=== PATIENT | male | born 1935 | race Caucasian/White ===

== ENCOUNTER → 2017-10-03 | Outpatient (CLI) | payer OTHER ==
[~2017-10-03] MED LIST: ALLO300 PO; ASCO500 PO; ASPI325; ATOR10; AZIT250 PO; CLOP75; CYAN1000; Coq-10100 MG PO; D3-20002000 UNIT PO; DOXA1; DOXA2; ELIQUIS5 MG PO; FINA5 PO; FISH1000 PO; HYDACE5 PO; IRON PO; LEVSOD137 PO; LEVSOD50 PO; LEVSOD88 PO; LISI5 PO; METO100ER; METO100ER PO; METO25ER PO; METO50ER PO; NIAC500; NITR.4SL; OMEGA PO; ONE DAILY MULT1 EACH PO; Omeprazole20 M1 PO; PRAV10 PO; Pravachol40 MG PO; TRIHYD253A; UBID100 PO; VERA240ERB; VYTORIN; WARF10 PO; WARF7.5 PO; XARELTO10 MG PO
[2017-10-04 14:07] LABS: Stool Occult Bld Immuno 1 Negative (NEGATIVE)
== END | disposition home or self-care (01) ==
LOC: LAB SHORT 09:00 → LAB 09:00 → LAB FUT 09-29 08:55
PROVIDERS: Internal Medicine
DX: D63.8 Anemia in other chronic diseases classified elsewhere (principal)
CPT/HCPCS: 82274

== ENCOUNTER → 2018-05-11 | Outpatient (CLI) | payer OTHER ==
[2018-05-11 15:03] LABS: Protein, Urine Random <5.0 mg/dL (0.0-11.9)
== END | disposition home or self-care (01) ==
LOC: LAB 14:33 → LAB SHORT 14:33
PROVIDERS: Internal Medicine
DX: N18.3 Chronic kidney disease, stage 3 (moderate) (principal)
CPT/HCPCS: 82570; 84156

== ENCOUNTER → 2018-08-06 | Outpatient (CLI) | payer OTHER ==
[~2018-08-06] MED LIST changes: +WARF2.5 PO
[2018-08-06 15:18] LABS: BASOPHILS ABSOLUTE AUTO 0.09 K/mm3 (0.00-0.23); BASOPHILS PERCENT AUTO 1 % (0-2); EOSINOPHILS ABSOLUTE AUTO 0.22 K/mm3 (0.00-0.68); EOSINOPHILS PERCENT AUTO 3 % (0-6); Hematocrit 32.7 % (37.0-53.0); Hemoglobin 10.4 g/dL (13.5-17.5); IMMATURE GRAN ABSOLUTE AUTO 0.05 K/mm3 (0.00-0.10); IMMATURE GRAN PERCENT AUTO 1 % (0-1); LYMPHOCYTES ABSOLUTE AUTO 0.32 K/mm3 (0.84-5.20); LYMPHOCYTES PERCENT AUTO 4 % (21-46); MONOCYTES ABSOLUTE AUTO 0.41 K/mm3 (0.16-1.47); MONOCYTES PERCENT AUTO 5 % (4-13); Mean Corpuscular HGB 28.2 pg (26.0-34.0); Mean Corpuscular HGB Conc 31.8 g/dL (31.5-36.5); Mean Corpuscular Volume 89 fL (80-100); Mean Platelet Volume 10.8 fL (9.1-12.4); NEUTROPHILS ABSOLUTE AUTO 7.32 K/mm3 (1.96-9.15); NEUTROPHILS PERCENT AUTO 87 % (41-73); Platelet Count 517 K/mm3 (150-400); RDW Standard Deviation 67.8 fL (35.1-46.3); Red Blood Cell Count 3.69 M/mm3 (4.30-5.90); White Blood Cell Count 8.41 K/mm3 (4.00-11.30)
[2018-08-06 15:50] LABS: International Normalized Ratio 2.56; Prothrombin Time Results 24.9 Sec (9.7-11.5)
== END | disposition home or self-care (01) ==
LOC: LAB SHORT 15:08 → LAB EV 15:08
PROVIDERS: General Practice
DX: Z79.01 Long term (current) use of anticoagulants (principal); Z51.81 Encounter for therapeutic drug level monitoring; Z79.899 Other long term (current) drug therapy
CPT/HCPCS: 85025; 85610

== ENCOUNTER 2018-08-07 15:23 | Emergency (ER) | payer OTHER ==
[~2018-08-07] VITALS: Ht 175.3 cm; Wt 73.0 kg
[~2018-08-07 15:23] MED LIST changes: -WARF2.5 PO
[2018-08-07] MEDS ORDERED: WARF2.5 PO (15:55)
[2018-08-07 16:24] LABS: BASOPHILS ABSOLUTE AUTO 0.13 K/mm3 (0.00-0.23); BASOPHILS PERCENT AUTO 2 % (0-2); EOSINOPHILS ABSOLUTE AUTO 0.24 K/mm3 (0.00-0.68); EOSINOPHILS PERCENT AUTO 3 % (0-6); Hematocrit 32.9 % (37.0-53.0); Hemoglobin 10.3 g/dL (13.5-17.5); IMMATURE GRAN ABSOLUTE AUTO 0.05 K/mm3 (0.00-0.10); IMMATURE GRAN PERCENT AUTO 1 % (0-1); LYMPHOCYTES ABSOLUTE AUTO 0.28 K/mm3 (0.84-5.20); LYMPHOCYTES PERCENT AUTO 3 % (21-46); MONOCYTES ABSOLUTE AUTO 0.39 K/mm3 (0.16-1.47); MONOCYTES PERCENT AUTO 4 % (4-13); Mean Corpuscular HGB 27.6 pg (26.0-34.0); Mean Corpuscular HGB Conc 31.3 g/dL (31.5-36.5); Mean Corpuscular Volume 88 fL (80-100); NEUTROPHILS ABSOLUTE AUTO 7.75 K/mm3 (1.96-9.15); NEUTROPHILS PERCENT AUTO 88 % (41-73); Platelet Count 575 K/mm3 (150-400); RDW Coefficient Variation 20.5 % (11.7-14.2); RDW Standard Deviation 65.5 fL (35.1-46.3); Red Blood Cell Count 3.73 M/mm3 (4.30-5.90); White Blood Cell Count 8.84 K/mm3 (4.00-11.30)
[2018-08-07 16:36] LABS: Alanine Aminotransfer (ALT/SGP 29 U/L (12-78); Albumin, Blood 3.9 g/dL (3.4-5.0); Albumin/Globulin Ratio 1.1 (0.8-1.8); Alk Phos 141 U/L (50-136); Anion Gap 6 mmol/L (6-16); Aspartate Aminotrans (AST/SGOT 25 U/L (12-37); Blood Urea Nitrogen 24 mg/dL (8-24); Bun/Creatinine Ratio 21.1 (12.0-20.0); CO2, Blood 31 mmol/L (21-32); Calcium, Blood 8.8 mg/dL (8.5-10.1); Chloride, Blood 99 mmol/L (98-108); Creatinine, Blood 1.14 mg/dL (0.60-1.20); Globulin, Blood 3.7 g/dL (2.2-4.0); Glomerular Filtration Rate >60 (60-); Glucose, Blood 102 mg/dL (70-99); Potassium, Blood 3.6 mmol/L (3.5-5.5); Sodium, Blood 136 mmol/L (136-145); Total Protein, Blood 7.6 g/dL (6.4-8.2)
[2018-08-07 16:43] LABS: International Normalized Ratio 2.83; Prothrombin Time Results 27.3 Sec (9.7-11.5)
== END 2018-08-07 18:44 | disposition home or self-care (01) ==
LOC: ER 15:23
PROVIDERS: Emergency Medicine
DX: R04.0 Epistaxis (principal); Z88.5 Allergy status to narcotic agent; Z88.8 Allergy status to other drugs, medicaments and biological substances; Z79.899 Other long term (current) drug therapy; Z79.01 Long term (current) use of anticoagulants; I25.2 Old myocardial infarction; Z87.891 Personal history of nicotine dependence
CPT/HCPCS: 30903; 36415; 80053; 85025; 85610; 99283-25

== ENCOUNTER → 2018-10-04 | Outpatient (CLI) | payer OTHER ==
[~2018-10-04] MED LIST changes: +WARF2.5 PO
[2018-10-04 16:01] LABS: BASOPHILS ABSOLUTE AUTO 0.09 K/mm3 (0.00-0.23); BASOPHILS PERCENT AUTO 1 % (0-2); EOSINOPHILS ABSOLUTE AUTO 0.07 K/mm3 (0.00-0.68); EOSINOPHILS PERCENT AUTO 1 % (0-6); Hematocrit 37.1 % (37.0-53.0); IMMATURE GRAN ABSOLUTE AUTO 0.03 K/mm3 (0.00-0.10); IMMATURE GRAN PERCENT AUTO 0 % (0-1); LYMPHOCYTES ABSOLUTE AUTO 0.22 K/mm3 (0.84-5.20); LYMPHOCYTES PERCENT AUTO 3 % (21-46); MONOCYTES ABSOLUTE AUTO 0.43 K/mm3 (0.16-1.47); MONOCYTES PERCENT AUTO 5 % (4-13); Mean Corpuscular HGB 27.6 pg (26.0-34.0); Mean Corpuscular HGB Conc 32.3 g/dL (31.5-36.5); Mean Corpuscular Volume 86 fL (80-100); Mean Platelet Volume 10.4 fL (9.1-12.4); NEUTROPHILS ABSOLUTE AUTO 7.42 K/mm3 (1.96-9.15); NEUTROPHILS PERCENT AUTO 90 % (41-73); Platelet Count 514 K/mm3 (150-400); RDW Coefficient Variation 17.7 % (11.7-14.2); RDW Standard Deviation 54.7 fL (35.1-46.3); Red Blood Cell Count 4.34 M/mm3 (4.30-5.90); White Blood Cell Count 8.26 K/mm3 (4.00-11.30)
[2018-10-04 16:22] LABS: Albumin, Blood 4.1 g/dL (3.4-5.0); Albumin/Globulin Ratio 1.2 (0.8-1.8); Bilirubin, Total 1.1 mg/dL (0.1-1.0); Calcium, Blood 9.1 mg/dL (8.5-10.1); Creatinine, Blood 1.5 mg/dL (0.60-1.20); Globulin, Blood 3.3 g/dL (2.2-4.0); Potassium, Blood 3.6 mmol/L (3.5-5.5); Total Protein, Blood 7.4 g/dL (6.4-8.2)
== END | disposition home or self-care (01) ==
LOC: LAB EV 15:54 → LAB SHORT 15:54
PROVIDERS: Physician Assistant
DX: J90 Pleural effusion, not elsewhere classified (principal); R06.02 Shortness of breath
CPT/HCPCS: 80053; 83880; 85025

== ENCOUNTER 2018-10-11 13:31 | Day surgery (SDC) | payer OTHER | END 2018-10-11 23:01 | disposition home or self-care (01) | LOC: US 13:31 | DX: J90 Pleural effusion, not elsewhere classified (principal) | CPT/HCPCS: 32555; 71045 ==

== ENCOUNTER 2018-10-21 14:35 | Day surgery (SDC) | payer OTHER | END 2018-10-21 22:43 | disposition home or self-care (01) | LOC: US 14:35 | DX: J90 Pleural effusion, not elsewhere classified (principal) | CPT/HCPCS: 32555; 71045 ==

== ENCOUNTER 2018-11-14 13:39 | Day surgery (SDC) | payer OTHER, SELFPAY ==
[2018-11-15 12:23] LABS: Albumin, Body Fluid 2.4 g/dL; Protein, Body Fluid 3.6 g/dL
== END 2018-11-14 22:39 | disposition home or self-care (01) ==
LOC: US 13:39
PROVIDERS: Internal Medicine Gastroenterology
DX: K74.69 Other cirrhosis of liver (principal); J90 Pleural effusion, not elsewhere classified; I50.32 Chronic diastolic (congestive) heart failure; N18.9 Chronic kidney disease, unspecified; I97.89 Other postprocedural complications and disorders of the circulatory system, not elsewhere classified; Z86.718 Personal history of other venous thrombosis and embolism; Z95.2 Presence of prosthetic heart valve; Z88.5 Allergy status to narcotic agent; Z88.8 Allergy status to other drugs, medicaments and biological substances; Z79.899 Other long term (current) drug therapy
CPT/HCPCS: 32555; 71045; 82042; 84157; 88108

== ENCOUNTER 2018-11-21 00:25 | Day surgery (SDC) | payer OTHER, SELFPAY | END 2018-11-21 22:56 | disposition home or self-care (01) | LOC: US 00:25 | PROC: 0W993ZZ Drainage of Right Pleural Cavity, Percutaneous Approach (ICD-10-PCS; principal; 2018-11-21) | DX: K74.60 Unspecified cirrhosis of liver (principal); K76.6 Portal hypertension; I25.10 Atherosclerotic heart disease of native coronary artery without angina pectoris; I50.32 Chronic diastolic (congestive) heart failure; M10.9 Gout, unspecified; I97.190 Other postprocedural cardiac functional disturbances following cardiac surgery; I13.0 Hypertensive heart and chronic kidney disease with heart failure and stage 1 through stage 4 chronic kidney disease, or unspecified chronic kidney disease; N18.9 Chronic kidney disease, unspecified; M19.90 Unspecified osteoarthritis, unspecified site; I73.00 Raynaud's syndrome without gangrene; I25.2 Old myocardial infarction; Z95.2 Presence of prosthetic heart valve; Z79.01 Long term (current) use of anticoagulants; Z87.891 Personal history of nicotine dependence; Z79.899 Other long term (current) drug therapy; Z79.82 Long term (current) use of aspirin; Z88.5 Allergy status to narcotic agent; Z88.8 Allergy status to other drugs, medicaments and biological substances; I48.0 Paroxysmal atrial fibrillation; J90 Pleural effusion, not elsewhere classified | CPT/HCPCS: 32555; 36415; 71045; 85025; 85610; 85730 ==

== ENCOUNTER 2018-11-28 13:36 | Day surgery (SDC) | payer OTHER, SELFPAY | END 2018-11-28 22:40 | disposition home or self-care (01) | LOC: US 13:36 | PROC: 0W993ZZ Drainage of Right Pleural Cavity, Percutaneous Approach (ICD-10-PCS; principal; 2018-11-28) | DX: J90 Pleural effusion, not elsewhere classified (principal); K74.60 Unspecified cirrhosis of liver; R18.8 Other ascites; R16.1 Splenomegaly, not elsewhere classified; I12.9 Hypertensive chronic kidney disease with stage 1 through stage 4 chronic kidney disease, or unspecified chronic kidney disease; K76.6 Portal hypertension; I50.30 Unspecified diastolic (congestive) heart failure; N18.9 Chronic kidney disease, unspecified; I25.10 Atherosclerotic heart disease of native coronary artery without angina pectoris; I25.2 Old myocardial infarction; I97.191 Other postprocedural cardiac functional disturbances following other surgery; M10.9 Gout, unspecified; E78.5 Hyperlipidemia, unspecified; I73.00 Raynaud's syndrome without gangrene; E03.9 Hypothyroidism, unspecified; M19.90 Unspecified osteoarthritis, unspecified site; K58.9 Irritable bowel syndrome, unspecified; Z87.891 Personal history of nicotine dependence; Z88.8 Allergy status to other drugs, medicaments and biological substances; Z88.5 Allergy status to narcotic agent; Z85.850 Personal history of malignant neoplasm of thyroid; Z79.899 Other long term (current) drug therapy; Z79.01 Long term (current) use of anticoagulants; Z95.5 Presence of coronary angioplasty implant and graft; Z95.2 Presence of prosthetic heart valve; I48.0 Paroxysmal atrial fibrillation | CPT/HCPCS: 32555; 36415; 71045; 85025; 85610; 85730 ==

== ENCOUNTER 2018-12-05 13:38 | Day surgery (SDC) | payer OTHER, SELFPAY | END 2018-12-05 22:49 | disposition home or self-care (01) | LOC: US 13:38 | DX: J90 Pleural effusion, not elsewhere classified (principal); I13.0 Hypertensive heart and chronic kidney disease with heart failure and stage 1 through stage 4 chronic kidney disease, or unspecified chronic kidney disease; I50.30 Unspecified diastolic (congestive) heart failure; N18.9 Chronic kidney disease, unspecified; I25.10 Atherosclerotic heart disease of native coronary artery without angina pectoris; I25.2 Old myocardial infarction; I48.0 Paroxysmal atrial fibrillation; E78.5 Hyperlipidemia, unspecified; E03.9 Hypothyroidism, unspecified; Z87.891 Personal history of nicotine dependence | CPT/HCPCS: 36415; 76604; 85610 ==

== ENCOUNTER 2018-12-12 13:38 | Day surgery (SDC) | payer OTHER, SELFPAY ==
[2018-12-12 09:09] LABS: International Normalized Ratio 1.14; Prothrombin Time Results 11.9 Sec (9.7-11.5)
== END 2018-12-12 22:56 | disposition home or self-care (01) ==
LOC: US 13:38
PROVIDERS: Internal Medicine Gastroenterology
DX: J90 Pleural effusion, not elsewhere classified (principal); K74.60 Unspecified cirrhosis of liver; I35.0 Nonrheumatic aortic (valve) stenosis; I12.9 Hypertensive chronic kidney disease with stage 1 through stage 4 chronic kidney disease, or unspecified chronic kidney disease; N18.9 Chronic kidney disease, unspecified; I48.91 Unspecified atrial fibrillation; I25.2 Old myocardial infarction; E78.5 Hyperlipidemia, unspecified; E03.9 Hypothyroidism, unspecified; Z87.891 Personal history of nicotine dependence
CPT/HCPCS: 36415; 76604; 85610; 85730

== ENCOUNTER 2018-12-19 13:41 | Day surgery (SDC) | payer OTHER, SELFPAY ==
[2018-12-19 10:12] LABS: International Normalized Ratio 1.15
== END 2018-12-19 23:07 | disposition home or self-care (01) ==
LOC: US 13:41
PROVIDERS: Internal Medicine Gastroenterology
DX: J90 Pleural effusion, not elsewhere classified (principal); K76.6 Portal hypertension; I13.0 Hypertensive heart and chronic kidney disease with heart failure and stage 1 through stage 4 chronic kidney disease, or unspecified chronic kidney disease; I50.30 Unspecified diastolic (congestive) heart failure; N18.9 Chronic kidney disease, unspecified; Z95.2 Presence of prosthetic heart valve
CPT/HCPCS: 36415; 76604; 85610; 85730

== ENCOUNTER 2019-01-03 09:30 | Day surgery (SDC) | payer OTHER, SELFPAY | END 2019-01-03 22:46 | disposition home or self-care (01) | LOC: US 09:30 | DX: J90 Pleural effusion, not elsewhere classified (principal); I48.0 Paroxysmal atrial fibrillation | CPT/HCPCS: 76604 ==

== ENCOUNTER → 2019-02-24 | Outpatient (CLI) | payer OTHER ==
[2019-02-24 08:45] LABS: Source, Urine Clean Catch
[2019-02-24 10:27] LABS: Bilirubin, Urine Neg (Neg); Blood, Urine Neg (Neg); Glucose Qualitative, Urine Neg (Neg); Ketones, Urine Neg (Neg); Leukocyte Esterase, Urine Neg (Neg); Nitrite, Urine Neg (Neg); Protein, Urine Neg (Neg); Urobilinogen, Urine NORM (Normal); pH, Urine 6.5 (5.0-8.0)
[2019-02-24 10:54] LABS: Appearance, Urine Clear (Clear); Color, Urine Yellow (P-Yellow)
[2019-02-24 11:10] LABS: Sodium, Urine, Random 45 mmol/L (20-110)
[2019-02-24 11:57] LABS: Osmolality, Urine 321 mos/kg (15-1400)
== END | disposition home or self-care (01) ==
LOC: OLS 08:43 → LAB SHORT 08:43
PROVIDERS: Internal Medicine
DX: N18.3 Chronic kidney disease, stage 3 (moderate) (principal)
CPT/HCPCS: 81003; 83935; 84300

== ENCOUNTER → 2019-03-02 | Outpatient (CLI) | payer OTHER ==
[2019-03-02 11:47] LABS: Sodium, Urine 81 mmol/L (20-110)
== END | disposition home or self-care (01) ==
LOC: LAB SHORT 03-01 07:00 → LAB 07:00
PROVIDERS: Internal Medicine
DX: N18.3 Chronic kidney disease, stage 3 (moderate) (principal)
CPT/HCPCS: 81050; 83935; 84300

== ENCOUNTER 2019-07-20 07:01 | Day surgery (SDC) | payer OTHER ==
[~2019-07-20] VITALS: Ht 175.3 cm; Wt 71.8 kg
[~2019-07-20 07:01] MED LIST changes: +VITAMIN B122500 MCG PO; +[UNRECOGNIZED DRUG - OTHER] PO
[2019-07-20] MEDS ORDERED: ASPIR 8181 M1 PO (07:43)
[2019-07-20] MEDS ORDERED: SPIR50 PO (07:44)
[2019-07-20] MEDS ORDERED: TORSE20 PO (07:45)
--- NOTE | 2019-07-20 08:03 | NUR ---
Ambulatory in Day Surgery History, Chart, Medications and Allergies reviewed before start of procedure.TOOK LAST COUMADIN ON WEDNESDAY-WILL DRAW PT/INR THIS AM. Lungs clear T/O to Auscultation.MURMUR AUSCULTATED. Patient confirms NPO status and agrees with scheduled surgery. Patient reports completing Chlorhexadine shower X2 prior to admission to hospital.Surgical site prepped with 2% Chlorhexidine cloth wipe. Patient States Post-Procedure ride home has been arranged.
--- NOTE | 2019-07-20 08:17 | NUR ---
PT/PTT DRAWN AND SENT TO LAB.
[2019-07-20 09:47] LABS: International Normalized Ratio 1.33
--- NOTE | 2019-07-20 10:35 | NUR ---
AMBULATED TO BRP AND VOIDED X 1 WITHOUT DIFFICULTY.
--- NOTE | 2019-07-20 14:03 | NUR ---
Ambulatory in Day Surgery Discharge instructions reviewed with patient. Patient verbalizes understanding. Copy given to patient to take home. Dressing to procedure site clean, dry, intact with no visible drainage, swelling, erythema or bruising noted. Discharged via wheelchair to private car for ride home.
== END 2019-07-20 13:52 | disposition home or self-care (01) ==
LOC: ORSCMMR 07:01 → ORD 08:30 → ORSCMMR 08:30
PROVIDERS: Surgery
PROC: 0HBU0ZZ Excision of Left Breast, Open Approach (ICD-10-PCS; principal; 2019-07-20 11:00)
DX: N62 Hypertrophy of breast (principal); I10 Essential (primary) hypertension; I25.2 Old myocardial infarction; Z79.899 Other long term (current) drug therapy; Z79.01 Long term (current) use of anticoagulants
CPT/HCPCS: 85610; 85730; 88305; J0690; J2405; J3010; J7120

== ENCOUNTER 2020-08-15 14:29 | Day surgery (SDC) | payer OTHER, SELFPAY ==
[~2020-08-15 14:29] MED LIST changes: +ASPIR 8181 M1 PO; +SPIR50 PO; +TORSE20 PO
== END 2020-08-15 22:48 | disposition home or self-care (01) ==
LOC: US 14:29 → ORSCMMR 14:32 → US 15:00
DX: J90 Pleural effusion, not elsewhere classified (principal); Z95.2 Presence of prosthetic heart valve
CPT/HCPCS: 32555; 71045

== ENCOUNTER 2020-08-29 14:33 | Day surgery (SDC) | payer OTHER | END 2020-08-29 22:40 | disposition home or self-care (01) | LOC: US 14:33 | DX: J90 Pleural effusion, not elsewhere classified (principal); I25.10 Atherosclerotic heart disease of native coronary artery without angina pectoris; I12.9 Hypertensive chronic kidney disease with stage 1 through stage 4 chronic kidney disease, or unspecified chronic kidney disease; N18.30 Chronic kidney disease, stage 3 unspecified; E78.2 Mixed hyperlipidemia; D64.9 Anemia, unspecified; M19.90 Unspecified osteoarthritis, unspecified site; E03.9 Hypothyroidism, unspecified; Z95.2 Presence of prosthetic heart valve; Z87.891 Personal history of nicotine dependence; Z79.01 Long term (current) use of anticoagulants | CPT/HCPCS: 32555; 71045 ==

== ENCOUNTER 2020-09-26 14:35 | Day surgery (SDC) | payer OTHER, SELFPAY | END 2020-09-26 22:37 | disposition home or self-care (01) | LOC: US 14:35 | DX: J90 Pleural effusion, not elsewhere classified (principal); Z95.2 Presence of prosthetic heart valve | CPT/HCPCS: 32555; 71045 ==

== ENCOUNTER 2020-10-10 14:23 | Day surgery (SDC) | payer OTHER, SELFPAY | END 2020-10-10 22:57 | disposition home or self-care (01) | LOC: US 14:23 | DX: J90 Pleural effusion, not elsewhere classified (principal); Z95.2 Presence of prosthetic heart valve | CPT/HCPCS: 32555; 71045 ==

== ENCOUNTER 2020-10-24 14:29 | Day surgery (SDC) | payer OTHER | END 2020-10-24 22:46 | disposition home or self-care (01) | LOC: US 14:29 | DX: J90 Pleural effusion, not elsewhere classified (principal); Z79.01 Long term (current) use of anticoagulants; Z51.81 Encounter for therapeutic drug level monitoring | CPT/HCPCS: 32555; 36415; 71045; 85025; 85610; 85730 ==

== ENCOUNTER 2020-10-31 17:26 | Inpatient (IN) | payer OTHER ==
[~2020-10-31] VITALS: Ht 175.3 cm; Wt 67.8 kg
[2020-10-31] MEDS ORDERED: TRAZ50 PO (20:57)
[2020-10-31] MEDS ORDERED: ALLO300 PO (20:57)
[2020-10-31] MEDS ORDERED: SYNTHROID137 MCG PO (20:57)
[2020-10-31] MEDS ORDERED: METOPROLOL SUCC25 MG PO (20:58)
[2020-10-31] MEDS ORDERED: TORSE20 PO (20:58)
[2020-10-31] MEDS ORDERED: SPIRONOLACTONE50 MG PO (20:58)
[2020-10-31] MEDS ORDERED: PRAVASTATIN SOD40 MG PO (20:58)
[2020-10-31] MEDS ORDERED: JANTOVEN5 M2 (20:59)
[2020-10-31] MEDS ORDERED: JANTOVEN2 MG (20:59)
[2020-10-31] MEDS ORDERED: FINA5 PO (20:59)
--- NOTE | 2020-10-31 22:00 | NUR ---
PT ADMITTED TO ROOM ICU 14 UNDER ICU STATUS. ARRIVES TO ROOM AT 2135. SLIDE TRANSFERRED TO BED. PT VERY SAXMAN. DOES HAVE HIS DAUGHTER, NUHA, ACCOMPANIES PT TO ROOM. SHE IS PATIENT'S SUPPORT PERSON AND WILL BE ALLOWED TO STAY WITH PT. PT ABLE TO ANSWER MOST OF HIS QUESTIONS WITH ASSIST FROM DAUGHTER AT TIMES. WILL REVIEW CHART AND PLAN OF CARE FOR THIS PT.
[2020-10-31] MEDS ORDERED: LEVSOD137 PO (23:07)
[2020-10-31] MEDS ORDERED: COQ-10100 MG PO (23:14)
[2020-10-31] MEDS ORDERED: CYAN500 PO (23:15)
[2020-10-31] MEDS ORDERED: ASPI81CH PO (23:16)
[2020-10-31] MEDS ORDERED: CENTRUM SILVER1 EAC2 PO (23:16)
[2020-10-31] MEDS ORDERED: IRON18 MG PO (23:17)
[2020-10-31] MEDS ORDERED: THERA-D2000 UNIT PO (23:18)
[2020-10-31] MEDS ORDERED: Vitamin C100 M1 PO (23:19)
[2020-11-01 00:51] LABS: Source, Urine Clean Catch
[2020-11-01 00:53] LABS: Bilirubin, Urine Neg (Neg); Blood, Urine Neg (Neg); Glucose Qualitative, Urine Neg (Neg); Ketones, Urine Neg (Neg); Leukocyte Esterase, Urine Neg (Neg); Nitrite, Urine Neg (Neg); Protein, Urine Neg (Neg); Specific Gravity, Urine 1.015 (1.003-1.022); Urobilinogen, Urine NORM (Normal)
[2020-11-01 00:54] LABS: Appearance, Urine Clear (Clear); Color, Urine Yellow (P-Yellow)
[2020-11-01 03:33] LABS: BASOPHILS ABSOLUTE AUTO 0.07 K/mm3 (0.00-0.23); BASOPHILS PERCENT AUTO 0 % (0-2); EOSINOPHILS ABSOLUTE AUTO 0.06 K/mm3 (0.00-0.68); EOSINOPHILS PERCENT AUTO 0 % (0-6); Hematocrit 32.1 % (37.0-53.0); IMMATURE GRAN ABSOLUTE AUTO 0.11 K/mm3 (0.00-0.10); IMMATURE GRAN PERCENT AUTO 1 % (0-1); LYMPHOCYTES ABSOLUTE AUTO 0.26 K/mm3 (0.84-5.20); LYMPHOCYTES PERCENT AUTO 2 % (21-46); MONOCYTES ABSOLUTE AUTO 0.85 K/mm3 (0.16-1.47); MONOCYTES PERCENT AUTO 5 % (4-13); Mean Corpuscular HGB 28.4 pg (26.0-34.0); Mean Corpuscular HGB Conc 34.3 g/dL (31.5-36.5); Mean Corpuscular Volume 83 fL (80-100); Mean Platelet Volume 10.5 fL (9.1-12.4); NEUTROPHILS ABSOLUTE AUTO 14.77 K/mm3 (1.96-9.15); NEUTROPHILS PERCENT AUTO 92 % (41-73); Platelet Count 494 K/mm3 (150-400); RDW Coefficient Variation 16.7 % (11.7-14.2); Red Blood Cell Count 3.88 M/mm3 (4.30-5.90); White Blood Cell Count 16.12 K/mm3 (4.00-11.30)
--- NOTE | 2020-11-01 03:46 | NUR ---
DR MELCHOR HAS COME IN DURING EVENING TO ASSESS AND ADMIT PT. ORDERS RECEIVED AND ENTERED. PT HAS BEEN IN SLOW RATE A FIB SINCE ADMIT. ASYMPTOMATIC. PT WAS STATUS CHANGED FROM ICU TO PCU STATUS. HAS BEEN UP TO BEDSIDE COMMODE WHEREAS HE VOIDS Q.S. POST VOID BLADDER SCAN WAS DONE REVEALING 41 ML LEFT IN BLADDER. PT DID REQUEST TO HAVE A CATHETER PLACED. DISCUSSED WITH PT ON HOLDING OFF ON CATHETER SECONDARY TO HE IS ABLE TO EMPTY WITH VOIDING. PT AND HIS DAUGHTER AGREE. WILL CONTINUE TO MONITOR PT.
[2020-11-01 03:52] LABS: Albumin, Blood 3.5 g/dL (3.4-5.0); Bilirubin, Total 0.9 mg/dL (0.1-1.0); Bun/Creatinine Ratio 41.6 (12.0-20.0); Calcium, Blood 8.8 mg/dL (8.5-10.1); Creatinine, Blood 2.98 mg/dL (0.60-1.20); Globulin, Blood 3.6 g/dL (2.2-4.0); Potassium, Blood 5.9 mmol/L (3.5-5.5); Total Protein, Blood 7.1 g/dL (6.4-8.2)
--- NOTE | 2020-11-01 07:30 | NUR ---
ASSUMED CARE BEDSIDE REPORT RECIEVED. PT IS SITTING UP IN BED AWAKE, ALERT, AND ORIENTED. PT IS HARD OF HEARING AND SLOW TO RESPOND AT TIMES, BUT ANSWERS QUESTIONS APPROPRIATELY. PT COMPLAINS OF SOME DISCOMFORT TO LOWER BACK AT TIMES. PT MOVES ALL EXTREMITIES. VITAL SIGNS STABLE. PT ON ROOM AIR. NS INFUSING AT 75 ML/HR. PT DAUGHTER AT BEDSIDE. WILL CONTINUE TO MONITOR.
[2020-11-01 10:10] LABS: Bun/Creatinine Ratio 43.8 (12.0-20.0); Calcium, Blood 8.9 mg/dL (8.5-10.1); Creatinine, Blood 2.76 mg/dL (0.60-1.20); Potassium, Blood 5.8 mmol/L (3.5-5.5)
[2020-11-01 12:48] LABS: Albumin, Blood 3.6 g/dL (3.4-5.0); Anion Gap 8 mmol/L (6-16); Blood Urea Nitrogen 116 mg/dL (8-24); Bun/Creatinine Ratio 43.6 (12.0-20.0); CO2, Blood 21 mmol/L (21-32); Chloride, Blood 91 mmol/L (98-108); Creatinine, Blood 2.66 mg/dL (0.60-1.20); Glomerular Filtration Rate 24 (60-); Glucose, Blood 149 mg/dL (70-99); Phosphorus, Blood 4.2 mg/dL (2.5-4.9); Potassium, Blood 5.8 mmol/L (3.5-5.5); Sodium, Blood 120 mmol/L (136-145)
--- NOTE | 2020-11-01 13:48 | NUR ---
ADMIT: 10/31/20 DISCHARGE: DX: Abnormal labs, worsening renal failure. CC: [email or web address] YAZAN CALL: RESIDENCE: home CAREGIVER: Romana Lozada, Child, DX: chronic anemia, CHF-diastolic, CKD-stage 3, MD, see list DME: INR home monitor CCM: Referral- 2016 HOME HEALTH: none SUMMARY: Admit: 10/31/20 11/01/20- per chart review with Dr. Harris, pt is in renal failure and there is no plan to d/c at this time. He will need to be here a couple more days.-catew meet with the son and family at 430 today to discuss hospice services. Spoke with the son and he would like to use [facility] for hospice and they would like the pt to go to [facility] because they have someone there that they know. Plan is to d/c pt once we have a bed for her. Tried to talk with pt about her wishes, she stated that she just wanted to fall asleep and not wake up. She is tired of being "poked and prodded." Dr. Harris has ordered comfort care for the pt. -arnold
--- NOTE | 2020-11-01 17:11 | NUR ---
SHIFT SUMMARY NO ACUTE CHANGES THIS SHIFT. PT HAS REMAINED AWAKE, ALERT, AND ORIENTED MOST OF THE SHIFT. PT WITH PERIODS OF FORGETFULNESS. PT IS PLEASANT. PT ANSWERS QUESTIONS APPROPRIATELY. PT MED WITH TYLENOL PRN FOR BACK PAIN. VITAL SIGNS HAVE REMAINED STABLE. PT TAKING IN MORE PO INTAKE THIS AFTERNOON. NS INFUSING AT 150 ML/HR. PT UP TO RECLINER CHAIR MULTIPLE TIMES THIS SHIFT AND UP TO BSC TO VOID. PT DAUGHTER REMAINS AT BEDSIDE. WILL CONTINUE TO MONITOR AND REPORT OFF TO ONCOMING RN.
[2020-11-01 17:53] LABS: Source, Urine Voided
[2020-11-01 18:31] LABS: Appearance, Urine Clear (Clear); Bilirubin, Urine Neg (Neg); Blood, Urine Neg (Neg); Color, Urine Yellow (P-Yellow); Glucose Qualitative, Urine Neg (Neg); Ketones, Urine Neg (Neg); Leukocyte Esterase, Urine Neg (Neg); Nitrite, Urine Neg (Neg); Protein, Urine Neg (Neg); Urobilinogen, Urine NORM (Normal)
[2020-11-01 19:37] LABS: Albumin, Blood 3.4 g/dL (3.4-5.0); Anion Gap 9 mmol/L (6-16); Blood Urea Nitrogen 100 mg/dL (8-24); Bun/Creatinine Ratio 37.3 (12.0-20.0); CO2, Blood 19 mmol/L (21-32); Calcium, Blood 8.9 mg/dL (8.5-10.1); Chloride, Blood 95 mmol/L (98-108); Creatinine, Blood 2.68 mg/dL (0.60-1.20); Glomerular Filtration Rate 24 (60-); Glucose, Blood 155 mg/dL (70-99); Phosphorus, Blood 4.4 mg/dL (2.5-4.9); Potassium, Blood 6.3 mmol/L (3.5-5.5); Sodium, Blood 123 mmol/L (136-145)
--- NOTE | 2020-11-01 20:30 | NUR ---
CRITICAL KCL VALUE OF 6.3 REPORTED TO AT THIS TIME. 1 AMP IV SODIUM BICARB FOLLOWED BY D5W W 150MEQ BICARB @ 75 ML/HR ORDERED TO BE GIVEN NOW, STAT KCL 2 HOURS AFTER BICARB PUSH ALONG WITH A LIVER PANEL, CPK, KARLENE, & URIC ACID W/AM LABS.
--- NOTE | 2020-11-02 00:35 | NUR ---
CALL WITH RESULTS OF REPEAT POTASSIUM OF 5.8 ORDERED. CHARGE NURSE NOTIFIED OF ALL PREVIOUS ORDERS & TREATMENTS PROVIDED.
[2020-11-02 03:48] LABS: Hematocrit 28.2 % (37.0-53.0); Hemoglobin 9.7 g/dL (13.5-17.5)
--- NOTE | 2020-11-02 03:49 | NUR ---
SHIFT SUMMARY NO ACUTE CHANGES NOTED THROUGH THE NIGHT. PT REMAINS A&O X3. D5W W/3 MEQ SODIUM BICARB GTT INFUSING @ 75 ML/HR. VSS, PT DENIES CP/PRESSURE, PT IS VOIDING WNL, TOLERATING PO INTAKE, STAND BY ASSIST TO THE BSC. PT'S DAUGHTER IS IN THE ROOM TO ASSIST WITH CARE. PT IS FORGETFUL AT TIMES & APPEARS TO FORGET DETAILS ABOUT HIS CARE REGIMEN. WAS CALLED ABOUT A CRITAICAL KCL OF 6.3 THROUGH THE NIGHT, (SEE PREVIOUS NOTE). F/U DRAW WAS 5.8, LATHE OPERATOR CONTACT LENS NOTIFIED. MORNING LADS HAVE BEEN DRAWN. PT IS CURRENTLY RESTING IN BED, CALL LIGHT IN REACH, WCTM & REPORT TO DAY RN.
[2020-11-02 04:15] LABS: Albumin, Blood 3.2 g/dL (3.4-5.0); Albumin/Globulin Ratio 1.1 (0.8-1.8); Bilirubin, Direct 0.5 mg/dL (0.0-0.3); Bilirubin, Indirect 0.3 mg/dL (0.1-0.7); Bilirubin, Total 0.8 mg/dL (0.1-1.0); Bun/Creatinine Ratio 39.8 (12.0-20.0); Calcium, Blood 8.3 mg/dL (8.5-10.1); Creatinine, Blood 2.41 mg/dL (0.60-1.20); Globulin, Blood 2.8 g/dL (2.2-4.0); Magnesium, Blood 2.7 mg/dL (1.6-2.4); Phosphorus, Blood 3.6 mg/dL (2.5-4.9); Potassium, Blood 5.6 mmol/L (3.5-5.5); Thyroid Stimulating Hormone 0.895 uIU/mL (0.360-4.800); Uric Acid, Blood 2.9 mg/dL (3.5-7.2)
--- NOTE | 2020-11-02 07:30 | NUR ---
PT AWAKE AND ALERT. SUN'[place], BUT COMMUNICATING NEEDS WELL AND COOPERATIVE WITH CARE. PT IS FORGETFUL. HIS DAUGHTER NUHA IS AT THE BEDSIDE-SHE STATES THAT PT LIVES ALONE AND IS ABLE TO DO ALL HIS MEDICATIONS AND ADL'S HIMSELF. SHE FEELS THAT PT CONFUSION AND FORGETFULNESS IS OUT OF THE NORM. VS WDL. LUNGS DIMINISHED THROUGH OUT THE RIGHT LUNG FIELD. PT HAS BEEN GETTING THERAPEUTIC THORACENTESIS EVERY TWO WEEKS. SATS >90% ON RA AND NO NOTED SOB OR COUGH. ABDOMEN IS DISTENDED AND SEMI-FIRM. PT DAUGHTER STATES THAT HE HAS NOT HAD A BM SINCE WEDNESDAY-WILL REQUEST BOWEL REGIME. PT STANDBY ASSIST TO BRP-TOLERATED WELL, THEN UP TO CHAIR FOR BREAKFAST.
--- NOTE | 2020-11-02 12:18 | NUR ---
NO ACUTE CHANGES. VSS. PT REPORTS "I'M NOT VERY HUNGRY." OTHERWISE, DENIES COMPLAINTS. REPORT GIVEN TO CAROL HOLT IN PREP TO TRANSFER TO ICU 3. PT IS MED-TELE STATUS.
--- NOTE | 2020-11-02 12:39 | NUR ---
TRANSFER NOTE- PT AWAKE, ALERT, COOPERATIVE, [place]. ABLE TO ANSWER QUESTIONS. LUNGS CLEAR, DENIES SOB OR CHEST PAIN. MEDICAL STATUS. STATES EATING WITHOUT PROBLEMS. IV D5 WTH 3 AMPS BICARB AT 75 CC/HR. REPORT FROM MARGARITA MEDINA. ABLE TO USE CALL LIGHT.
--- NOTE | 2020-11-02 14:14 | NUR ---
UP TO TOILET TO VOID WITH STANDBY ASSIST. FALL PRECAUTIONS. DID WELL. DENIES PROBLEMS.
--- NOTE | 2020-11-02 18:15 | NUR ---
VISITING WITH DAUGHTER, AWAKE, ALERT, TALKATIVE. PIV INTACT. AFIB RATE 50'S. CONTINUE TO MONITOR
--- NOTE | 2020-11-02 23:39 | NUR ---
PT TRANSFER REPORT GIVEN TO CAROL PIPER. PT A&OX4, [place]. SP02>90% ON RA. TELEMTRY READS AFIB, HR 40'S-50'S. PT C/O OF BACK PAIN, MEDICATED W/ TYLENOL PER EMAR. PT AMBULATED TO BATHROOM TO VOID. ALSO AMBULATED W/ GAIT BELT AROUND NURSES STATION W/ MINIMAL ASSISTANCE. USES CALL LIGHT APPROPRIATELY. C/O OF BEING COLD, SEVERAL WARM BLANKETS GIVEN. PT IS ACOMPANIED BY DAUGHTER, NUHA. PT TRANSFERRED BY WHEELCHAIR AT APPROX 2330 TO MEDICAL FLOOR.
--- NOTE | 2020-11-03 00:23 | NUR ---
PT ADMITTED TO FLOOR FROM THE ICU WITH DX OF RENAL FAILURE. ALERT AND ORIENTED TO QUESTIONS ASKED. FALL RISK - DAUGHTER AT BEDSIDE TO HELP WATCH. ORIENTED TO USE OF CALL LIGHT. CALL LIGHT IN REACH
[2020-11-03 04:52] LABS: Hematocrit 28.4 % (37.0-53.0); Hemoglobin 9.7 g/dL (13.5-17.5)
[2020-11-03 05:15] LABS: Albumin, Blood 3.1 g/dL (3.4-5.0); Anion Gap 6 mmol/L (6-16); Blood Urea Nitrogen 70 mg/dL (8-24); Bun/Creatinine Ratio 33.3 (12.0-20.0); CO2, Blood 30 mmol/L (21-32); Calcium, Blood 8.2 mg/dL (8.5-10.1); Chloride, Blood 88 mmol/L (98-108); Glomerular Filtration Rate 32 (60-); Glucose, Blood 122 mg/dL (70-99); Magnesium, Blood 2.6 mg/dL (1.6-2.4); Phosphorus, Blood 3.5 mg/dL (2.5-4.9); Potassium, Blood 4.5 mmol/L (3.5-5.5); Sodium, Blood 124 mmol/L (136-145)
--- NOTE | 2020-11-03 05:46 | NUR ---
PERFORATOR LOADER SUMMARY WAS TRANSFERRED TO FLOOR FROM THE ICU THIS SHIFT, ACCOMPANIED BY DAUGHTER. DX RENAL FAILURE. IV SODIUM BICARB INFUSING AT 75 NML/HR. MED [employer] AFIB. HAS BEEN RESTING QUIETLY WITH FEW INTERRUPTIONS. CALL LIGHT IN REACH.
--- NOTE | 2020-11-03 11:32 | NUR ---
0745 CONVEYANCER CALLED. PT HAD 6 BEAT RUN VTACH. RATE 130. BACK TO AFIBV AT 58. PT WAS GETTING UP TO GO TO BATHROOM AT TIME OF EVENT. REMAINED ASYMPTOMATIC. 0815 TELE CALLED HAS BEEN HAVING OCC PVC'S. NOW ARE 30 - [address] MELLO. UPDATED WITH ALL INF. PT CONTINUES ASYMPTOMATIC. NO NEW ORDERS.
--- NOTE | 2020-11-03 11:34 | NUR ---
0845 CALLED TELE. STATES PT BACK TO AFIB AND RATE ABOUT 60. NOW OCC PVC'S AGAIN.
[2020-11-03 14:43] LABS: Potassium, Blood 4.6 mmol/L (3.5-5.5)
--- NOTE | 2020-11-03 15:42 | NUR ---
PT SITTING PLAYING CARDS/CRIBBAGE WITH DAUGHTER. SITTING IN CHAIR. NO NEW CONCERNS NOTED.
--- NOTE | 2020-11-03 16:32 | NUR ---
PT HAS BEEN QUITE PLEASANT AND COOP TODAY. IS QUITE [place]. DAUGHTER HAS BEEN IN TO BE OF ASSISTANCE TODAY. VERY HELPFUL. HAD BACKACHE THIS AM. MEDICATED WITH TYLENOL WHICH RESOLVED TO HIS SATISFACTION. DID PLAY CRIBBAGE TODAY WITH DAUGHTER. AMBULATING 1 MIN ASST TO BATHROOM. HOPEFUL FOR B/M. NOT PRODUCED YET. WILL CONTINUE TO FOLLOW. SODIUM LEVELS SLOWLY IMPROVING. PRESENTLY SITTING IN CHAIR . CALL LITE IN REACH, CALLS APPROP
--- NOTE | 2020-11-04 03:56 | NUR ---
LABOR RELATIONS CONSULTANT SUMMARY HAS BEEN RSTING QUIETLY WITH OCCASIONAL INTERRUPTIONS FOR NAUSEA AND DRY HEAVES. HAS RECEIVED ZOFRAN X 2 OF THIS WRITING THIS SHIFT. RESTING QUIETLY AT THIS TIME, DAUGHTER AT BEDSIDE. CALL LIGHT IN REACH.
[2020-11-04 05:16] LABS: Hematocrit 28.1 % (37.0-53.0); Hemoglobin 9.2 g/dL (13.5-17.5)
[2020-11-04 05:33] LABS: Albumin, Blood 3.1 g/dL (3.4-5.0); Anion Gap 7 mmol/L (6-16); Blood Urea Nitrogen 60 mg/dL (8-24); Bun/Creatinine Ratio 29.7 (12.0-20.0); CO2, Blood 30 mmol/L (21-32); Calcium, Blood 8.5 mg/dL (8.5-10.1); Chloride, Blood 92 mmol/L (98-108); Creatinine, Blood 2.02 mg/dL (0.60-1.20); Glomerular Filtration Rate 34 (60-); Glucose, Blood 92 mg/dL (70-99); Magnesium, Blood 2.3 mg/dL (1.6-2.4); Phosphorus, Blood 3.9 mg/dL (2.5-4.9); Potassium, Blood 4.7 mmol/L (3.5-5.5); Sodium, Blood 129 mmol/L (136-145)
--- NOTE | 2020-11-04 10:01 | NUR ---
LEFT MESSAGE ON DR. RUSSO VOICE MAIL; PATIENT SAID SODIUM PILLS WERE CANCELLED SO I HELD, HELD LASIX QAS B.P. IN 90'S PAST THREE TAKES AND HEART IN BIGENINY COUPLETS 58-60 -WAS SLEEPING. AWAITING ANY ORDERS
--- NOTE | 2020-11-04 11:03 | NUR ---
BROWN COW GIVEN--WARM PRUNE JUICE, APPLE JUICE AND MELTED PAT BUTTER.
--- NOTE | 2020-11-04 12:07 | NUR ---
TALKED TO . OK TO HOLD LASIX DUE TO LOW B.P. OK TO D'C SODIUM TABS IS CLOSE TO BASELINE. HE IS AWARE OF BIJEMINY PVC'S IN COUPLETS RATE 58-60. NO OTHER CHANGES IN MEDS AND NO NEW ORDERS.
--- NOTE | 2020-11-04 16:28 | NUR ---
TALKED TO ABOUT PT WITH JUST RT OF MIDDLE CHEST PAIN. NONRAD, NO DIFFERENCE W/DEEP INSPIRATION AND NO NAUSEA OR SOB. VS [place]. TROP X 1 AND EKG
--- NOTE | 2020-11-04 17:40 | NUR ---
ALERT. ORIENTED. CONSTIPATION AND GIVEN MEDS WITHOUT RELIEF AT THIS TIME. PASSING GAS. AMBULATORY IN HALLWAY X 2, STEADY GAIT WITH DAUGHTER IN ATTENDANCE. UNLABORED RESPIRATIONS. DENIES ANY PAIN. VERY [place]. TELE ON AND HAS BEEN AFIB 50-60. HAD ONE EPISODE OF C.P. WITH TROP BEING NEGATIVE AND EKG WITH NO CHANGES. WCTM
--- NOTE | 2020-11-04 19:34 | NUR ---
RESTING QUIETLY. HOB ELEVATED FOR COMFORT. NO NOTED ACUTE DISTRESS. CALL LIGHT IN REACH
--- NOTE | 2020-11-05 04:22 | NUR ---
TEXTILE STYLIST SUMMARY DAUGHTER LEFT LATE LAST NIGHT DUE TO VISITORS AT HOME. SHE SAID SHE NOTED HER FATHER SEEMED TO BE LESS CONFUSED AND APPEARED TO BE IMPROVING. PT BED ALARM ON FOR SAFETY. HAD BEEN RESTING QUIETLY WITHOUT NOETD DISTRESS, BUT WAS ASSISTED TO BATHROOM X 1 TO VOID HE SAID HE HAD DIFFICULTIES USING THE URINAL. BACK IN BED AND CALL LIGHT IN REACH
[2020-11-05 05:30] LABS: Albumin, Blood 3.1 g/dL (3.4-5.0); Anion Gap 6 mmol/L (6-16); Blood Urea Nitrogen 56 mg/dL (8-24); Bun/Creatinine Ratio 26.3 (12.0-20.0); CO2, Blood 30 mmol/L (21-32); Calcium, Blood 8.5 mg/dL (8.5-10.1); Chloride, Blood 89 mmol/L (98-108); Creatinine, Blood 2.13 mg/dL (0.60-1.20); Glomerular Filtration Rate 32 (60-); Glucose, Blood 95 mg/dL (70-99); Phosphorus, Blood 2.7 mg/dL (2.5-4.9); Potassium, Blood 5.2 mmol/L (3.5-5.5); Sodium, Blood 125 mmol/L (136-145)
[2020-11-05] MEDS ORDERED: COQ-10100 MG PO (14:32)
[2020-11-05] MEDS ORDERED: MIRALAX17 GM PO (14:36)
--- NOTE | 2020-11-05 15:06 | NUR ---
SUMMARY: ADMIT: 10/31/20 11/05/20- UTE WITH [facility] STOPPED BY AND SHE HAS SPOKEN WITH PT'S DAUGHTER. SHE WOULD LIKE TO BRING THE PT HOME AND SEE HOW HE DOES. UTE WILL FOLLOW UP HER TOMORROW AND IF HE NEEDS SERVICES, SHE WILL SET HIM UP. -JENNIFER PT TO D/C HOME TODAY WITH HOME HEALTH SERVICES THROUGH [facility]. MET WITH DAUGHTER AND PT AND REVIEWED YAZAN LETTER. LET DAUGHTER KNOW PSYCHOLOGISTS WAS CONTACTED ABOUT HER CONCERNS. LET THEM KNOW THAT PT WOULD NEED FOLLOW UP WITH EITHER PCP OR ANOTHER PROVIDER IN HER "POD." DAUGTHER ACKNOWLEDGED UNDERSTANDING. -JENNIFER 11/05/20- MET WITH PT AND DAUGHTER YESTERDAY. DAUGHTER REPORTS THAT PT IS HARD OF HEARING, SO SHE IS THERE TO HELP HIM UNDERSTAND. SHE/THEY REPORT THAT PT WAS INDEPENDENT PRIOR TO COMING INTO THE HOSPITAL WITH DAUGHTER CHECKING IN ON HIM AND TAKING HIM TO [facility] APPTS TO HELP WITH COMMUNICATION AND UNDERSTANDING. PT LIVES ALONE, NOT HOMELESS, IN A SINGLE STORY HOME. THERE ARE 2 STAIRS TO GET INTO THE HOME WITH RAILING. PT REPORTS THAT HE IS COMFORTABLE GOING UP AND DOWN THEM. PT IS STILL DRIVING BUT DAUGHTER DOES GO WITH HIM TO IMPORTANT APPTS. HIS POA IS HIS DAUGHTER NUHA AND SHE IS ALSO HIS NEXT OF KIN. THEY DO NOT NEED ANY DME IN THE HOME. PT MANAGES HIS OWN MEDICATIONS AND HIS PHARMACY IS [facility] IN [place]. DAUGHTER WAS WONDERING ABOUT CAREGIVERS, PROVIDED HER WITH LIST OF LOCAL CAREGIVERS AND AGENCIES FOR HER TO CALL. DAUGHTER EXPRESSED HER FRUSTRATION WITH HER FATHER'S CARE. IT SOUNDS LIKE SHE CALLED PCP'S OFFICE REQUESTING AN APPT BECAUSE HE WAS GETTING VERY SICK. SHE COULDN'T MAKE AN APPT. SHE HAD REQUESTED LAB WORK BUT REPORTS NO ONE WOULD ORDER IT. SHE EVENTUALLY CALLED [facility] OFFICE AND THEY ORDERED LABS AND THEN WERE TOLD TO GO TO THE ER FOR ADMISSIONS. SHE STATES THIS TOOK SEVERAL DAYS AND HE DAD GOT SICKER AND SICKER AND SHE WAS AFRAID HE WAS GOING TO . LISTENED TO HER CONCERNS AND ADVISED HER TO NEXT TIME ASK FOR THE TRIAGE LINE WITH [facility] AND THAT SHE COULD ALSO ACCESS THE . -JENNIFER
--- NOTE | 2020-11-05 15:25 | NUR ---
REVIEW D'C W/DAUGHTER. AWARE TO GIVE MEDS FOR CONSTIPATION. AWARE [facility] WILL CALL WITH F/U APPT. ANSWER ALL QUESTIONS. VERBALIZES UNDERSTANDING. IN W/C TO POV
--- NOTE | 2020-11-05 15:40 | NUR ---
NUHA DAUGHTER ADVISED TO HAVE PATIENT STOP TAKING ; SPIROLACTONE, DEMADEX AND METOPROLOL. WHEN DISCUSSING THYROID MED AND WHY TAKES 1.5 PILLS ON WEDNESDAY STS IT IS PRESCRIBED BY [facility] AND THEY WATCH IT. NO CHANGES FOR THYROID IT IS BEING MANAGED OUTSIDE OF PCP.
== END 2020-11-05 15:21 | disposition home or self-care (01) | DRG 683 ==
LOC: ER 17:26 → MEDS 20:31 → ICUW 20:31 → ICUE 11-02 12:20 → MEDS 11-02 23:36
PROVIDERS: Internal Medicine; Internal Medicine Nephrology; ADMIT Internal Medicine
DX: N17.9 Acute kidney failure, unspecified (principal); E87.1 Hypo-osmolality and hyponatremia; D63.1 Anemia in chronic kidney disease; N18.30 Chronic kidney disease, stage 3 unspecified; I12.9 Hypertensive chronic kidney disease with stage 1 through stage 4 chronic kidney disease, or unspecified chronic kidney disease; N40.0 Benign prostatic hyperplasia without lower urinary tract symptoms; E03.9 Hypothyroidism, unspecified; E78.5 Hyperlipidemia, unspecified; E87.5 Hyperkalemia; Z88.5 Allergy status to narcotic agent; Z88.8 Allergy status to other drugs, medicaments and biological substances; Z79.82 Long term (current) use of aspirin; Z79.899 Other long term (current) drug therapy; I08.1 Rheumatic disorders of both mitral and tricuspid valves; K74.60 Unspecified cirrhosis of liver; I25.10 Atherosclerotic heart disease of native coronary artery without angina pectoris; I10 Essential (primary) hypertension; M19.90 Unspecified osteoarthritis, unspecified site; Z85.850 Personal history of malignant neoplasm of thyroid; Z95.2 Presence of prosthetic heart valve; D64.9 Anemia, unspecified; I25.2 Old myocardial infarction; Z95.5 Presence of coronary angioplasty implant and graft; Z90.49 Acquired absence of other specified parts of digestive tract; E83.41 Hypermagnesemia; E87.6 Hypokalemia; Z68.20 Body mass index [BMI] 20.0-20.9, adult; R62.7 Adult failure to thrive
CPT/HCPCS: 36415; 76770; 80048; 80053; 80069; 81003; 82248; 82533; 82550; 82947; 83735; 83935; 84100; 84132; 84295; 84300; 84443; 84484; 84550; 85014; 85018; 85025; 86038; 93005; 93010; 96365; 96375; 97110; 97112; 97116; 97161; 97166; 97530; 97535; 99285-25; A9270; J0610; J1650; J1815; J2405; J7030; J7070

== ENCOUNTER 2020-11-07 14:22 | Day surgery (SDC) | payer OTHER ==
[~2020-11-07 14:22] MED LIST changes: +ASPI81CH PO; +CENTRUM SILVER1 EAC2 PO; +COQ-10100 MG PO; +CYAN500 PO; +IRON18 MG PO; +JANTOVEN2 MG; +JANTOVEN5 M2; +METOPROLOL SUCC25 MG PO; +MIRALAX17 GM PO; +PRAVASTATIN SOD40 MG PO; +SPIRONOLACTONE50 MG PO; +SYNTHROID137 MCG PO; +THERA-D2000 UNIT PO; +TRAZ50 PO; +Vitamin C100 M1 PO
== END 2020-11-07 22:45 | disposition home or self-care (01) ==
LOC: US 14:22
DX: J90 Pleural effusion, not elsewhere classified (principal)
CPT/HCPCS: 32555; 71045

== ENCOUNTER 2020-11-14 14:21 | Day surgery (SDC) | payer OTHER | END 2020-11-14 23:10 | disposition home or self-care (01) | LOC: US 14:21 | DX: J90 Pleural effusion, not elsewhere classified (principal) | CPT/HCPCS: 32555; 71045 ==

== ENCOUNTER 2020-11-21 21:16 | Emergency (ER) | payer OTHER ==
[~2020-11-21] VITALS: Ht 175.3 cm; Wt 68.0 kg
[2020-11-21 22:25] LABS: BASOPHILS ABSOLUTE AUTO 0.09 K/mm3 (0.00-0.23); BASOPHILS PERCENT AUTO 1 % (0-2); EOSINOPHILS ABSOLUTE AUTO 0.04 K/mm3 (0.00-0.68); EOSINOPHILS PERCENT AUTO 0 % (0-6); Hematocrit 29.7 % (37.0-53.0); Hemoglobin 9.6 g/dL (13.5-17.5); IMMATURE GRAN ABSOLUTE AUTO 0.05 K/mm3 (0.00-0.10); IMMATURE GRAN PERCENT AUTO 1 % (0-1); LYMPHOCYTES ABSOLUTE AUTO 0.17 K/mm3 (0.84-5.20); LYMPHOCYTES PERCENT AUTO 2 % (21-46); MONOCYTES ABSOLUTE AUTO 0.58 K/mm3 (0.16-1.47); MONOCYTES PERCENT AUTO 6 % (4-13); Mean Corpuscular HGB 29.5 pg (26.0-34.0); Mean Corpuscular HGB Conc 32.3 g/dL (31.5-36.5); Mean Corpuscular Volume 91 fL (80-100); Mean Platelet Volume 11.1 fL (9.1-12.4); NEUTROPHILS ABSOLUTE AUTO 8.49 K/mm3 (1.96-9.15); NEUTROPHILS PERCENT AUTO 90 % (41-73); Platelet Count 307 K/mm3 (150-400); RDW Standard Deviation 59.7 fL (35.1-46.3); Red Blood Cell Count 3.25 M/mm3 (4.30-5.90); White Blood Cell Count 9.42 K/mm3 (4.00-11.30)
[2020-11-21 22:48] LABS: Albumin, Blood 3.3 g/dL (3.4-5.0); Bun/Creatinine Ratio 22.7 (12.0-20.0); Calcium, Blood 8.7 mg/dL (8.5-10.1); Creatinine, Blood 1.54 mg/dL (0.60-1.20); Globulin, Blood 3.3 g/dL (2.2-4.0); Potassium, Blood 4.4 mmol/L (3.5-5.5); Total Protein, Blood 6.6 g/dL (6.4-8.2); Troponin I 0.018 ng/mL (0.000-0.040)
== END 2020-11-22 05:23 | disposition home or self-care (01) ==
LOC: ER 21:16
PROVIDERS: Physician Assistant
DX: R00.2 Palpitations (principal); R06.00 Dyspnea, unspecified; Z79.82 Long term (current) use of aspirin; Z79.899 Other long term (current) drug therapy
CPT/HCPCS: 36415; 71045; 80053; 83690; 83880; 84484; 85025; 93005; 93010; 99285-25

== ENCOUNTER 2020-11-28 14:26 | Day surgery (SDC) | payer OTHER | END 2020-11-28 22:41 | disposition home or self-care (01) | LOC: US 14:26 | DX: J90 Pleural effusion, not elsewhere classified (principal) | CPT/HCPCS: 32555; 71045 ==

== ENCOUNTER 2020-12-12 14:29 | Day surgery (SDC) | payer OTHER ==
[~2020-12-12 14:29] MED LIST changes: -ASPI81CH PO; -CENTRUM SILVER1 EAC2 PO; -CYAN500 PO; -IRON18 MG PO; -PRAVASTATIN SOD40 MG PO; -SYNTHROID137 MCG PO; -THERA-D2000 UNIT PO; -Vitamin C100 M1 PO
== END 2020-12-12 22:39 | disposition home or self-care (01) ==
LOC: US 14:29
DX: J90 Pleural effusion, not elsewhere classified (principal)
CPT/HCPCS: 32555; 71045

== ENCOUNTER 2020-12-19 14:31 | Day surgery (SDC) | payer OTHER ==
[2020-12-20] MEDS ORDERED: PRAVASTATIN SOD40 MG PO (17:28)
[2020-12-20] MEDS ORDERED: FINA5 PO (17:28)
[2020-12-20] MEDS ORDERED: TORSE20 PO ×2 (17:28→19:35)
[2020-12-20] MEDS ORDERED: SYNTHROID137 MCG PO (17:29)
[2020-12-20] MEDS ORDERED: ALLO300 PO (17:29)
[2020-12-20] MEDS ORDERED: CYAN500 PO (19:32)
[2020-12-20] MEDS ORDERED: LEVSOD137 PO (19:32)
[2020-12-20] MEDS ORDERED: Aspir 8181 MG PO (19:33)
[2020-12-20] MEDS ORDERED: MULVITA PO (19:33)
[2020-12-20] MEDS ORDERED: FERROUS SULFAT325 M3 PO (19:34)
[2020-12-20] MEDS ORDERED: THERA-D2000 UNIT PO (19:34)
[2020-12-20] MEDS ORDERED: ASCO500 PO (19:35)
[2020-12-20] MEDS ORDERED: COQ-10100 MG PO (19:35)
[2020-12-20] MEDS ORDERED: PRESERVISION A1 EAC1 PO (19:37)
[2020-12-20] MEDS ORDERED: POTA10T PO (19:37)
[2020-12-20] MEDS ORDERED: SPIR25 PO (19:37)
== END 2020-12-19 23:00 | disposition home or self-care (01) ==
LOC: US 14:31
DX: J90 Pleural effusion, not elsewhere classified (principal)
CPT/HCPCS: 32555; 71045

== ENCOUNTER 2020-12-20 12:00 | Emergency (ER) | payer OTHER ==
[~2020-12-20] VITALS: Ht 175.3 cm; Wt 72.6 kg
[2020-12-20 14:11] LABS: Source, Urine Clean Catch
[2020-12-20 14:17] LABS: Appearance, Urine Hazy (Clear); Blood, Urine Neg (Neg); Color, Urine Amber (P-Yellow); Glucose Qualitative, Urine Neg (Neg); Ketones, Urine Neg (Neg); Leukocyte Esterase, Urine 1+ (Neg); Nitrite, Urine Neg (Neg); Protein, Urine 2+ (Neg); Specific Gravity, Urine 1.015 (1.003-1.022); Urobilinogen, Urine 2+ (Normal)
[2020-12-20 14:20] LABS: Albumin, Blood 2.8 g/dL (3.4-5.0); Albumin/Globulin Ratio 0.9 (0.8-1.8); Bun/Creatinine Ratio 21.6 (12.0-20.0); Calcium, Blood 8.4 mg/dL (8.5-10.1); Creatinine, Blood 2.55 mg/dL (0.60-1.20); Globulin, Blood 3.2 g/dL (2.2-4.0); Potassium, Blood 4.2 mmol/L (3.5-5.5)
[2020-12-20 14:27] LABS: BASOPHILS ABSOLUTE AUTO 0.09 K/mm3 (0.00-0.23); BASOPHILS PERCENT AUTO 1 % (0-2); EOSINOPHILS ABSOLUTE AUTO 0.04 K/mm3 (0.00-0.68); EOSINOPHILS PERCENT AUTO 0 % (0-6); Hematocrit 30.7 % (37.0-53.0); Hemoglobin 10.3 g/dL (13.5-17.5); IMMATURE GRAN ABSOLUTE AUTO 0.07 K/mm3 (0.00-0.10); IMMATURE GRAN PERCENT AUTO 1 % (0-1); LYMPHOCYTES ABSOLUTE AUTO 0.17 K/mm3 (0.84-5.20); LYMPHOCYTES PERCENT AUTO 1 % (21-46); MONOCYTES ABSOLUTE AUTO 0.77 K/mm3 (0.16-1.47); MONOCYTES PERCENT AUTO 6 % (4-13); Mean Corpuscular HGB 29.3 pg (26.0-34.0); Mean Corpuscular HGB Conc 33.6 g/dL (31.5-36.5); Mean Corpuscular Volume 88 fL (80-100); Mean Platelet Volume 11.4 fL (9.1-12.4); NEUTROPHILS PERCENT AUTO 92 % (41-73); Platelet Count 504 K/mm3 (150-400); RDW Coefficient Variation 18.6 % (11.7-14.2); RDW Standard Deviation 57.5 fL (35.1-46.3); Red Blood Cell Count 3.51 M/mm3 (4.30-5.90); White Blood Cell Count 13.44 K/mm3 (4.00-11.30)
[2020-12-20 14:30] LABS: Bilirubin, Urine 1+ (Neg)
[2020-12-20 14:31] LABS: Bacteria Many /hpf; Granular Casts Rare /lpf (0); Red Blood Cells, Urine Not Seen /hpf (0-2); Squamous Epithelial Cells Rare /hpf (Few)
[2020-12-20] MEDS ORDERED: TORSE20 PO ×2 (17:28→19:35)
[2020-12-20] MEDS ORDERED: PRAVASTATIN SOD40 MG PO (17:28)
[2020-12-20] MEDS ORDERED: FINA5 PO (17:28)
[2020-12-20] MEDS ORDERED: SYNTHROID137 MCG PO (17:29)
[2020-12-20] MEDS ORDERED: ALLO300 PO (17:29)
[2020-12-20] MEDS ORDERED: LEVSOD137 PO (19:32)
[2020-12-20] MEDS ORDERED: CYAN500 PO (19:32)
[2020-12-20] MEDS ORDERED: MULVITA PO (19:33)
[2020-12-20] MEDS ORDERED: Aspir 8181 MG PO (19:33)
[2020-12-20] MEDS ORDERED: THERA-D2000 UNIT PO (19:34)
[2020-12-20] MEDS ORDERED: FERROUS SULFAT325 M3 PO (19:34)
[2020-12-20] MEDS ORDERED: ASCO500 PO (19:35)
[2020-12-20] MEDS ORDERED: COQ-10100 MG PO (19:35)
[2020-12-20] MEDS ORDERED: POTA10T PO (19:37)
[2020-12-20] MEDS ORDERED: SPIR25 PO (19:37)
[2020-12-20] MEDS ORDERED: PRESERVISION A1 EAC1 PO (19:37)
[2020-12-20 20:47] LABS: SARS-Cov-2 (COVID-19) PCR, MMC NEGATIVE (NEGATIVE)
== END 2020-12-20 21:55 | disposition short-term general hospital (02) ==
LOC: ER 12:00
PROVIDERS: Physician Assistant
DX: K85.90 Acute pancreatitis without necrosis or infection, unspecified (principal); K80.50 Calculus of bile duct without cholangitis or cholecystitis without obstruction; R94.5 Abnormal results of liver function studies; E80.7 Disorder of bilirubin metabolism, unspecified; R74.8 Abnormal levels of other serum enzymes; I10 Essential (primary) hypertension; Z20.822 Contact with and (suspected) exposure to COVID-19; Z79.82 Long term (current) use of aspirin; Z88.5 Allergy status to narcotic agent; Z88.1 Allergy status to other antibiotic agents; Z88.8 Allergy status to other drugs, medicaments and biological substances; Z79.899 Other long term (current) drug therapy
CPT/HCPCS: 36415; 74176; 76705; 80053; 81001; 83605; 83690; 85025; 87086; 93005; 93010; 96365; 99285-25; J0696; J7030; U0004